=== PATIENT | female | born 1940 | race Hispanic/Latino ===

== ENCOUNTER 2017-01-09 07:32 | Inpatient (IN) | payer MEDICARE ==
[2016-12-14 09:55] VITALS: BMI 28.2
[2017-01-09 08:37] LABS: RBC URINE 1 /hpf (0-3); URINE BILIRUBIN NEGATIVE (NEGATIVE); URINE BLOOD NEGATIVE (NEGATIVE); URINE COLOR Straw (YELLOW); URINE GLUCOSE (UA) 2+ mg/dL (Normal); URINE KETONE NEGATIVE (NEGATIVE); URINE LEUKOCYTE ESTERASE TRACE Leu/uL (Negative); URINE PROTEIN 2+ mg/dL (NEGATIVE); URINE UROBILINOGEN NORMAL mg/dL (0.2-1.0); WBC URINE 7 /hpf (0-5)
[2017-01-09] MEDS ORDERED: cefTRIAXone IV 1 gm in Dextros 50 ML IVPB ONE (08:56)
[2017-01-09] MEDS ORDERED: ceFAZolin IV 2 gm in Dextrose 1 GM/50 ML BAG IVPB ONE (11:27)
[2017-01-09] MEDS ORDERED: Bupivacaine Liposomal Inj 20 ml INFIL ONE (11:33)
--- NOTE | 2017-01-09 11:37 | CP.PCM.HP ---
History of Present Illness - History of Present Illness History of Present Illness: 76F failed conservative mgmt and elected for THR. PMH: CAD, s/p stents, DM, HTN, hypothyroid, PVD s/p stent, LBP, dizziness All: lisinopril Present on Admission - Present on Admission Any Indicators Present on Admission: No Review of Systems - Review of Systems All systems: reviewed and no additional remarkable complaints except - Musculoskeletal Musculoskeletal: As Per HPI Past Patient History - Infectious Disease Hx of Infectious Diseases: None - Past Medical History & Family History Past Medical History?: Yes Past Family History: Reviewed and not pertinent - Past Social History Smoking Status: Former Smoker - CARDIAC Hx Cardiac Disorders: Yes (cad stents) Hx Angina: Yes (2 years ago not since stent placement) Hx Hypertension: Yes Hx Pacemaker: No Hx Peripheral Vascular Disease: Yes (pad left iliac stent) - PULMONARY Hx Respiratory Disorders: No - NEUROLOGICAL Hx Neurological Disorder: Yes (numbness bilat hands) Hx Dizziness: Yes Hx Paralysis: No - HEENT Hx HEENT Problems: Yes (macular degeneration) - RENAL Hx Chronic Kidney Disease: No - ENDOCRINE/METABOLIC Hx Endocrine Disorders: Yes Hx Diabetes Mellitus Type 2: Yes Hx Hypothyroidism: Yes - HEMATOLOGICAL/ONCOLOGICAL Hx Blood Disorders: Yes Hx Anemia: Yes Hx Blood Transfusions: No Hx Shingles: Yes - INTEGUMENTARY Hx Dermatological Problems: No - MUSCULOSKELETAL/RHEUMATOLOGICAL Hx Musculoskeletal Disorders: Yes (HIPS) Hx Arthritis: Yes Hx Back Pain: Yes Hx Falls: Yes Hx Herniated Disk: Yes (buldging lumbar discs) Hx Osteoarthritis: Yes - GASTROINTESTINAL Hx Gastrointestinal Disorders: Yes (occ diarrhea) - GENITOURINARY/GYNECOLOGICAL Hx Genitourinary Disorders: No - PSYCHIATRIC Hx Psychophysiologic Disorder: No Hx Substance Use: No - SURGICAL HISTORY Hx Surgeries: Yes Hx Angioplasty: Yes (2014 left iliac 2014) Hx Cardiac Catheterization: Yes (c/ stents) Hx Coronary Stent: Yes (2014) Other/Comment: heart stents - ANESTHESIA Hx Anesthesia: Yes Hx Anesthesia Reactions: No Hx Malignant Hyperthermia: No Has any member of the family had a problem w/ anesthesia?: No Meds Allergies/Adverse Reactions: Allergies Allergy/AdvReac Type Severity Reaction Status Date / Time lisinopril Allergy Severe ANAPHYLAXIS Verified 01/09/17 10:02 Physical Exam - Constitutional Appears: Well, No Acute Distress Additional comments: full medical H&P and clearance on chart, reviewed - Head Exam Head Exam: ATRAUMATIC, NORMAL INSPECTION - Respiratory Exam Respiratory Exam: NORMAL BREATHING PATTERN - Extremities Exam Additional comments: calves soft NT neg homans - Expanded Lower Extremities Exam Right Ankle exam: FULL ROM, NORMAL INSPECTION (limited R hip ROM, painful) Neuro vacular tendon exam: no vascular compromise - Neurological Exam Neurological exam: Alert, Oriented x3 - Psychiatric Exam Psychiatric exam: Normal Affect, Normal Mood - Skin Skin Exam: Dry, Intact, Normal Color, Warm Results - Vital Signs Recent Vital Signs: Last Vital Signs Temp 97.4 F L 01/09/17 09:05 Pulse 70 01/09/17 09:05 Resp 18 01/09/17 09:05 BP 161/69 H 01/09/17 09:05 Pulse Ox 98 01/09/17 09:05 - Labs Result Diagrams: 01/10/17 07:13 01/10/17 07:13 Labs: Laboratory Results - last 24 hr 01/09/17 01/09/17 01/09/17 08:02 09:32 09:52 POC Glucose (mg/dL) 252 H Urine Color Straw Urine Clarity Clear Urine pH 6.0 Ur Specific [place] 1.014 Urine Protein 2+ H Urine Glucose (UA) 2+ H Urine Ketones Negative Urine Blood Negative Urine Nitrate Negative Urine Bilirubin Negative Urine Urobilinogen Normal Ur Leukocyte Esterase Trace Urine WBC (Auto) 7 H Urine RBC (Auto) 1 Ur Squamous Epith Cells 2 Blood Type B POSITIVE Antibody Screen Negative Assessment & Plan (1) Degenerative joint disease of right hip Assessment and Plan: full medical h&P and clearance on chart, reviewed NPO for THR T&C Status: Acute (2) UTI (urinary tract infection) Assessment and Plan: UTI seen on pre admission labs, not treated prior to 01/08 +nitrites and 1+ leuk est on PATs, called into office 01/08 Bactrim DS ordered by Dr. Wolfe and urinalysis repeated on admit, shows tr leuk est, neg nitrites per Dr. Wolfe, rocephin was given, and will contine for 3 day course empirically due to total joint replacement Status: Acute (3) Iron deficiency anemia Status: Chronic (4) Diabetes mellitus Status: Chronic (5) Hypertension Status: Chronic (6) Coronary artery disease Status: Chronic (7) Hypothyroidism Status: Chronic
[2017-01-09] MEDS ORDERED: Lactated Ringer's 1,000 ML IV ONE ×3 (11:49→15:10)
[2017-01-09] MEDS ORDERED: Propofol 10 mg/ml Inj (20 ML) ONE (11:52)
[2017-01-09] MEDS ORDERED: Rocuronium 10 mg/ml (5 ml) ONE (11:53)
[2017-01-09] MEDS ORDERED: Succinylcholine Chloride 20 mg/ml Syr (5 ml) IV ONE (11:53)
[2017-01-09] MEDS ORDERED: ePHEDrine 50 mg/ml Inj ONE (12:10)
[2017-01-09] MEDS ORDERED: Sodium Chloride 0.9% 60 ML IV ONE (12:43)
[2017-01-09] MEDS: Bacitracin 150,000 UNIT in Sodium Chloride 0.9% Irrig 3,000 ML IR SCH ×2 (13:00→14:12)
[2017-01-09] MEDS ORDERED: Neostigmine Methylsulfate 3mg/3ml Syringe IV ONE ×2 (14:32)
[2017-01-09] MEDS ORDERED: Bisacodyl 5mg EC Tab PO PRN (15:17)
[2017-01-09] MEDS ORDERED: HYDROmorphone 1 mg/ml ISec IVP PRN (15:17)
[2017-01-09] MEDS ORDERED: Oxycodone/Acetaminophen 5/325 mg Tab PO PRN (15:17)
[2017-01-09] MEDS ORDERED: Morphine Monoject Barrel PCA 1mg/ml IV PRN (15:23)
[2017-01-09] MEDS ORDERED: DiphenhydrAMINE 50 mg/ml Inj IVP PRN (15:23)
--- NOTE | 2017-01-09 15:47 | RAD ---
PROCEDURE: Right Hip with pelvis Radiographs. HISTORY: s/p TKR, pt in PACU COMPARISON: None. FINDINGS: BONES: No suspicious lytic or blastic change seen throughout the pelvic ring or pelvic bone fracture. Pubic symphysis appears intact. JOINTS: The patient is seen to be status post right shoulder replacement with orthopedic hardware in good apparent position of the right acetabulum and proximal right femur. SOFT TISSUES: Postoperative changes seen at the right thigh soft tissues lateral as well as of the lateral right hip including lateral skin karla. Gross vascular calcification identified at the iliofemoral distribution as captured bilaterally. OTHER FINDINGS: None. IMPRESSION: Status post right shoulder replacement with hardware in adequate position. No fracture dislocation or suspicious lytic or blastic change. Postoperative changes are noted at the right hip and thigh as discussed above.
[2017-01-09] MEDS: (Novolin R) Insulin Human Regular 100 units/ml vial SC SCH ×2 (16:39→22:29)
[2017-01-09] MEDS ORDERED: HYDROmorphone 0.5 mg/0.5 ml ISec IVP PRN (17:01)
[2017-01-09] MEDS: Sodium Chloride 0.9% 1,000 ML IV SCH (18:00)
--- NOTE | 2017-01-09 18:23 | OP ---
PROCEDURE DATE: 01/09/2017 PREOPERATIVE DIAGNOSIS: Right hip osteoarthritis. POSTOPERATIVE DIAGNOSIS: Right hip osteoarthritis. PROCEDURE: Right total hip arthroplasty. SURGEON: Maximino Wolfe MD CONTROL SUPERVISOR: Treva Goins, physician insurance legal assistant, Ms. Briseida was scrubbed and present throughout the case and helped in the patient's positioning, retraction, hip reduction as well as wound closure. ANESTHESIA: General. COMPLICATIONS: None. ESTIMATED BLOOD LOSS: 350 mL IMPLANT: Biomet dual mobility total hip. INDICATIONS FOR PROCEDURE: This is a 76-year-old female who presented with longstanding right hip pain. Clinical examination reveals pain with passive range of motion at the left hip, loss of internal and external rotation and pain with axial load. Radiographic examination was consistent with advanced degenerative joint disease of the right hip. After a period of failed nonsurgical management, recommendations were for right total hip arthroplasty. The risks, benefits and alternatives of the procedure were discussed with the patient and informed consent was obtained. OPERATIVE PROCEDURE: After the surgical site was finally verified in the preoperative holding area, the patient was taken to the operating room and placed supine on the operating table. After administration of general anesthesia, the patient received 2 g of Ancef IV. The patient also received 1 g of Rocephin earlier today and Oliva catheter was inserted. VA9 boot was placed on the nonoperative extremity and the patient was positioned in lateral decubitus position with the right hip up towards the ceiling. Care was taken to make sure all bony prominences and nerves were well padded and protected and the right lower extremity was prepped and draped in the usual sterile fashion. Bony landmarks were identified about the proximal femur and approximately 10 cm curvilinear incision was made. Soft tissues were dissected sharply down to the fascia. The fascia was incised and Charnley retractor was placed. Short external rotators were identified, tacked and resected off the proximal femur. T-type capsulotomy was performed and the hip was dislocated. Based on the preoperative template, a femoral neck dissection was then performed. The femoral head was removed and passed off the field as a specimen. An anterior capsulotomy was performed and the acetabulum was exposed. The acetabulum was then reamed sequentially to allow for a 54 mm Pressfit cup. Care was taken to maintain proper acetabular height and version. At this point, a trial component was placed and satisfied. The trial was removed and the hip joint was pulse lavaged. The bony surfaces were dried and the actual cup was impacted into place. The cup was further fixed by inserting 2 screws in the posterior-superior quadrant. At this point, a trial band was inserted and attention was directed to the femur. Medial condyle of the proximal femur was reamed sequentially to allow for a 11 mm Pressfit stem. Again, care was taken to maintain proper version. The trial stem was then placed and the trial neck and head were placed and the hip was reduced. The hip was taken through range motion, it was noted to be stable to approximately equal limb lengths. At this point, the hip was dislocated and all the trial components were removed. The hip joint was once again pulse lavaged. The bony surfaces were dried and the actual stem was then impacted into place. The actual bearing was then impacted in place. The head was placed over the stem and the hip was reduced. The hip was again noted to be stable at approximately equal limb lengths. At this point, the capsule was closed using #1 Vicryl suture to the bone. Soft tissues were also repaired using #1 Vicryl suture. The deep fascia was closed using # Vicryl suture. The subcutaneous tissue was closed 0 Vicryl and 2-0 Vicryl sutures and the skin was closed using karla. Sterile dressing was applied and an abduction pillow was placed. The patient was transferred to supine and sent to recovery room in stable condition. Maximino Wolfe MD
[2017-01-09 18:32] LABS: HEMATOCRIT 23.6 % (34.0-47.0)
[2017-01-09] MEDS: Metoprolol Succinate 50 mg XL Tab PO SCH (19:15)
[2017-01-09] MEDS: GlipiZIDE 2.5 mg Tab PO SCH (19:15)
[2017-01-09] MEDS: ceFAZolin IV 2 gm in Dextrose 2 GM/100 ML BAG IVPB SCH (19:30)
[2017-01-09] MEDS: HYDROmorphone 0.5 mg/0.5 ml ISec IVP PRN (23:59)
[2017-01-10] MEDS: Sodium Chloride 0.9% 1,000 ML IV SCH ×2 (04:00→11:29)
[2017-01-10] MEDS: ceFAZolin IV 2 gm in Dextrose 2 GM/100 ML BAG IVPB SCH (05:13)
[2017-01-10] MEDS: HYDROmorphone 0.5 mg/0.5 ml ISec IVP PRN ×2 (05:17→11:05)
[2017-01-10] MEDS: Levothyroxine 125 MCG TAB PO SCH (06:54)
[2017-01-10 07:19] LABS: HEMATOCRIT 26.5 % (34.0-47.0); MEAN CELL VOLUME 83.8 fL (81.0-99.0); MEAN CORPUSCULAR HEMOGLOBIN 27.7 pg (27.0-31.0); MEAN PLATELET VOLUME 8.7 fL (7.2-11.7); RED CELL DISTRIBUTION WIDTH 15.4 % (11.5-14.5); WHITE BLOOD COUNT 6.7 K/uL (4.8-10.8)
[2017-01-10] MEDS: (Novolin R) Insulin Human Regular 100 units/ml vial SC SCH ×4 (08:30→21:39)
[2017-01-10 08:34] LABS: CALCIUM 8.5 mg/dl (8.6-10.4); POTASSIUM 4.7 mmol/L (3.6-5.2)
[2017-01-10] MEDS: Metoprolol Succinate 50 mg XL Tab PO SCH ×2 (10:00→17:39)
--- NOTE | 2017-01-10 10:59 | CP.PCM.PN ---
Subjective - Date & Time of Evaluation Date of Evaluation: 01/10/17 Time of Evaluation: 10:57 - Subjective Subjective: Pt awake, alert. Afebrile RLE: NVI distally dressing intact Hg 8.7 POD#1 Pt received 2 units of blood. Check Hg tomorrow DVT prophylaxis D/c planning Objective - Vital Signs/Intake and Output Vital Signs (last 24 hours): Temp Pulse Resp BP Pulse Ox 98 F 84 20 152/75 H 97 01/10/17 07:10 01/10/17 07:10 01/10/17 07:10 01/10/17 07:10 01/10/17 07:10 Intake and Output: 01/10/17 01/10/17 06:59 18:59 Intake Total 645 Output Total 1350 Balance -705 - Medications Medications: Current Medications Acetaminophen (Tylenol 325mg Tab) 650 mg PO Q4 PRN PRN Reason: Fever 101 degrees fahrenheit Amlodipine Besylate (Norvasc) 5 mg PO DAILY [facility] Last Admin: 01/10/17 09:59 Dose: 5 mg Bisacodyl (Dulcolax) 10 mg PO HS PRN PRN Reason: Constipation Docusate Sodium (Colace) 100 mg PO BID [facility] Last Admin: 01/10/17 10:00 Dose: 100 mg Enoxaparin Sodium (Lovenox) 40 mg SC Q24H [facility] Gabapentin (Neurontin) 300 mg PO BID [facility] Last Admin: 01/09/17 19:15 Dose: 300 mg Glipizide (Glucotrol) 5 mg PO BID [facility] Last Admin: 01/09/17 19:15 Dose: 5 mg Hydrochlorothiazide (Hydrodiuril) 25 mg PO DAILY [facility] Last Admin: 01/10/17 10:00 Dose: 25 mg Hydromorphone HCl (Dilaudid) 0.5 mg IVP Q15MIN PRN PRN Reason: for pain Last Admin: 01/09/17 17:45 Dose: 0.5 mg Hydromorphone HCl (Dilaudid) 0.5 mg IVP Q4H PRN PRN Reason: Pain, severe (8-10) Last Admin: 01/10/17 05:17 Dose: 0.5 mg Sodium Chloride (Sodium Chloride 0.9%) 1,000 mls @ 80 mls/hr IV .[id number] [facility] Last Admin: 01/10/17 04:00 Dose: Not Given Ceftriaxone Sodium 1 gm/ (Sodium Chloride) 100 mls @ 100 mls/hr IVPB DAILY [facility] Stop: 01/11/17 10:59 Insulin Detemir (Levemir) 40 unit SC HS [facility] Insulin Human Regular (Novolin R) 0 unit SC ACHS [facility] PRN Reason: Protocol Last Admin: 01/09/17 22:29 Dose: 2 unit Isosorbide Mononitrate (Imdur) 60 mg PO QAM [facility] Last Admin: 01/10/17 10:00 Dose: 60 mg Levothyroxine Sodium (Synthroid) 125 mcg PO DAILY@0630 [facility] Last Admin: 01/10/17 06:54 Dose: 125 mcg Metformin HCl (Glucophage) 500 mg PO BID [facility] Metoprolol Succinate (Toprol Xl) 50 mg PO BID [facility] Last Admin: 01/10/17 10:00 Dose: 50 mg Ondansetron HCl (Zofran Inj) 4 mg IVP Q8H PRN PRN Reason: Nausea/Vomiting Oxycodone/Acetaminophen (Percocet 5/325 Mg Tab) 1 tab PO Q4 PRN PRN Reason: Pain, Mild (1-3) Stop: 01/12/17 15:18 - Labs Labs: 01/10/17 07:13 01/10/17 07:13
--- NOTE | 2017-01-10 14:45 | CP.PCM.PN ---
Subjective - Date & Time of Evaluation Date of Evaluation: 01/10/17 Time of Evaluation: 14:43 - Subjective Subjective: Patient states pain is well controlled. Denies CP/SOB/dizziness. Receiving second unit PRBC now. Denies nv/numbness/tingling. Objective - Vital Signs/Intake and Output Vital Signs (last 24 hours): Temp Pulse Resp BP Pulse Ox 98.9 F 82 20 136/62 98 01/10/17 14:15 01/10/17 14:15 01/10/17 14:15 01/10/17 14:15 01/10/17 13:13 Intake and Output: 01/10/17 01/10/17 06:59 18:59 Intake Total 645 0 Output Total 1350 Balance -705 0 - Medications Medications: Current Medications Acetaminophen (Tylenol 325mg Tab) 650 mg PO Q4 PRN PRN Reason: Fever 101 degrees fahrenheit Last Admin: 01/10/17 14:09 Dose: 650 mg Amlodipine Besylate (Norvasc) 5 mg PO DAILY [facility] Last Admin: 01/10/17 09:59 Dose: 5 mg Bisacodyl (Dulcolax) 10 mg PO HS PRN PRN Reason: Constipation Docusate Sodium (Colace) 100 mg PO BID [facility] Last Admin: 01/10/17 10:00 Dose: 100 mg Enoxaparin Sodium (Lovenox) 40 mg SC Q24H [facility] Gabapentin (Neurontin) 300 mg PO BID [facility] Last Admin: 01/10/17 10:59 Dose: 300 mg Glipizide (Glucotrol) 5 mg PO BID [facility] Last Admin: 01/09/17 19:15 Dose: 5 mg Hydrochlorothiazide (Hydrodiuril) 25 mg PO DAILY [facility] Last Admin: 01/10/17 10:00 Dose: 25 mg Ceftriaxone Sodium 1 gm/ (Sodium Chloride) 100 mls @ 100 mls/hr IVPB DAILY [facility] Stop: 01/11/17 10:59 Last Admin: 01/10/17 11:24 Dose: 100 mls/hr Insulin Detemir (Levemir) 40 unit SC HS [facility] Insulin Human Regular (Novolin R) 0 unit SC ACHS [facility] PRN Reason: Protocol Last Admin: 01/10/17 11:51 Dose: 6 unit Isosorbide Mononitrate (Imdur) 60 mg PO QAM [facility] Last Admin: 01/10/17 10:00 Dose: 60 mg Levothyroxine Sodium (Synthroid) 125 mcg PO DAILY@0630 [facility] Last Admin: 01/10/17 06:54 Dose: 125 mcg Metformin HCl (Glucophage) 500 mg PO BID [facility] Metoprolol Succinate (Toprol Xl) 50 mg PO BID [facility] Last Admin: 01/10/17 10:00 Dose: 50 mg Morphine Sulfate (Morphine) 2 mg IVP Q4 PRN PRN Reason: Pain, severe (8-10) Ondansetron HCl (Zofran Inj) 4 mg IVP Q8H PRN PRN Reason: Nausea/Vomiting Oxycodone/Acetaminophen (Percocet 5/325 Mg Tab) 1 tab PO Q4 PRN PRN Reason: Pain, Mild (1-3) Stop: 01/12/17 15:18 - Labs Labs: 01/10/17 07:13 01/10/17 07:13 - Extremities Exam Additional comments: calves soft NT neg homans sensation intact +DP/PT pulses +enodynes +abd pillow - Neurological Exam Neurological Exam: Awake, Oriented x3 Neuro motor strength exam: Right Lower Extremity: 5 Additional comments: patient drowsy, answers questions and easily awakened, received dilaudid 1 hour prior - Psychiatric Exam Psychiatric exam: Normal Affect, Normal Mood - Skin Skin Exam: Dry, Intact, Normal Color, Warm Assessment and Plan (1) Degenerative joint disease of right hip Assessment & Plan: POD#1 s/p right THR f/u am labs PT/OT d/c planning will change dilaudid to lower dose morphine and hold for sedation VTE proph on lovenox d/w Dr. Wolfe, agrees with above Status: Acute (2) Acute blood loss anemia Assessment & Plan: transfuse 2uPRBC post op labs in am hemodynamically stable Status: Acute (3) UTI (urinary tract infection) Status: Acute (4) Iron deficiency anemia Status: Chronic (5) Diabetes mellitus Status: Chronic (6) Hypertension Status: Chronic (7) Coronary artery disease Status: Chronic (8) Hypothyroidism Status: Chronic
[2017-01-10] MEDS: Enoxaparin 40 mg Syringe SC SCH (17:39)
[2017-01-10] MEDS: GlipiZIDE 2.5 mg Tab PO SCH (18:21)
[2017-01-10] MEDS: Insulin Detemir 100 units/ml Vial (Levemir) SC SCH (21:56)
[2017-01-11] MEDS: Levothyroxine 125 MCG TAB PO SCH (05:59)
[2017-01-11 06:28] LABS: HEMATOCRIT 27.6 % (34.0-47.0); MEAN CELL VOLUME 82.9 fL (81.0-99.0); MEAN CORPUSCULAR HEMOGLOBIN 27.9 pg (27.0-31.0); MEAN CORPUSCULAR HGB CONC 33.6 g/dL (33.0-37.0); MEAN PLATELET VOLUME 8.8 fL (7.2-11.7); RED CELL DISTRIBUTION WIDTH 15.1 % (11.5-14.5); WHITE BLOOD COUNT 7.6 K/uL (4.8-10.8)
[2017-01-11] MEDS: (Novolin R) Insulin Human Regular 100 units/ml vial SC SCH ×3 (07:00→17:54)
[2017-01-11 07:46] LABS: POTASSIUM 3.7 mmol/L (3.6-5.2)
[2017-01-11 07:50] LABS: CALCIUM 8.1 mg/dl (8.6-10.4)
--- NOTE | 2017-01-11 07:55 | CP.PCM.PN ---
Subjective - Date & Time of Evaluation Date of Evaluation: 01/11/17 Time of Evaluation: 07:54 - Subjective Subjective: Pt awake, alert. Denies significant pain. Afebrile R hip with clean dressing. NVI distally abduction pillow in place Hg 9.3 POD#2 cont PT, DVT prophylaxis stable for d/c Objective - Vital Signs/Intake and Output Vital Signs (last 24 hours): Temp Pulse Resp BP Pulse Ox 98.3 F 84 20 158/71 H 96 01/11/17 06:38 01/10/17 23:05 01/10/17 23:05 01/10/17 23:05 01/10/17 23:05 Intake and Output: 01/11/17 01/11/17 06:59 18:59 Intake Total 118 Balance 118 - Medications Medications: Current Medications Acetaminophen (Tylenol 325mg Tab) 650 mg PO Q4 PRN PRN Reason: Fever 101 degrees fahrenheit Last Admin: 01/11/17 01:14 Dose: 650 mg Amlodipine Besylate (Norvasc) 5 mg PO DAILY [facility] Last Admin: 01/10/17 09:59 Dose: 5 mg Bisacodyl (Dulcolax) 10 mg PO HS PRN PRN Reason: Constipation Docusate Sodium (Colace) 100 mg PO BID [facility] Last Admin: 01/10/17 17:39 Dose: 100 mg Enoxaparin Sodium (Lovenox) 40 mg SC Q24H [facility] 234 [facility]S [facility] Last Admin: 01/10/17 17:39 Dose: 40 mg Gabapentin (Neurontin) 300 mg PO BID [facility] 234 [facility]S [facility] Last Admin: 01/10/17 17:41 Dose: 300 mg Glipizide (Glucotrol) 5 mg PO BID [facility] 234 [facility]S [facility] Last Admin: 01/10/17 18:21 Dose: 5 mg Hydrochlorothiazide (Hydrodiuril) 25 mg PO DAILY [facility] 234 [facility]S [facility] Last Admin: 01/10/17 10:00 Dose: 25 mg Ceftriaxone Sodium 1 gm/ (Sodium Chloride) 100 mls @ 100 mls/hr IVPB DAILY [facility] 234 [facility]S [facility] Stop: 01/11/17 10:59 Last Admin: 01/10/17 11:24 Dose: 100 mls/hr Insulin Detemir (Levemir) 40 unit SC HS [facility] 234 [facility]S [facility] Last Admin: 01/10/17 21:56 Dose: 40 unit Insulin Human Regular (Novolin R) 0 unit SC ACHS [facility] 234 [facility]S [facility] PRN Reason: Protocol Last Admin: 01/10/17 21:39 Dose: Not Given Isosorbide Mononitrate (Imdur) 60 mg PO QAM [facility] Last Admin: 01/10/17 10:00 Dose: 60 mg Levothyroxine Sodium (Synthroid) 125 mcg PO DAILY@0630 [facility] 234 [facility]S [facility] Last Admin: 01/11/17 05:59 Dose: 125 mcg [facility] Metoprolol Succinate (Toprol Xl) 50 mg PO BID [facility] Last Admin: 01/10/17 17:39 Dose: 50 mg Morphine Sulfate (Morphine) 2 mg IVP Q4 PRN PRN Reason: Pain, severe (8-10) Ondansetron HCl (Zofran Inj) 4 mg IVP Q8H PRN PRN Reason: Nausea/Vomiting Oxycodone/Acetaminophen (Percocet 5/325 Mg Tab) 1 tab PO Q4 PRN PRN Reason: Pain, Mild (1-3) Stop: 01/12/17 15:18 - Labs Labs: 01/11/17 06:20 01/11/17 06:20
[2017-01-11] MEDS: Metoprolol Succinate 50 mg XL Tab PO SCH ×2 (09:30→17:53)
[2017-01-11] MEDS: GlipiZIDE 2.5 mg Tab PO SCH ×2 (09:31→17:54)
--- NOTE | 2017-01-11 10:04 | CON ---
DATE: HISTORY OF PRESENT ILLNESS: The patient is a 76-year-old female with history of multiple medical problems, was seen for medical management and medical followup postoperative. The patient underwent right total hip replacement. The patient did not have any shortness of breath or chest pain. REVIEW OF SYSTEMS: Other review of systems is negative. ALLERGIES: THE PATIENT HAS ALLERGY TO LISINOPRIL. HOME MEDICATIONS: Levemir 40 units at bedtime, glipizide 5 mg twice a day, levothyroxine 125 mcg daily, metformin 1000 mg twice a day, Imdur 60 mg daily, Neurontin 300 mg twice a day, enalapril and hydrochlorothiazide 1 tablet daily, amlodipine 5 mg daily, Nitrostat 0.4 mg sublingual, metoprolol 50 mg twice a day. PAST MEDICAL HISTORY: Hypertension, osteoarthritis, type 2 diabetes mellitus. SOCIAL HISTORY: No history of smoking, EtOH, or substance abuse. FAMILY HISTORY: Noncontributory. PHYSICAL EXAMINATION GENERAL: The patient is in bed, comfortable, not in any cardiopulmonary distress. VITAL SIGNS: Blood pressure 140/81, temperature 99.2, respiratory rate 20, and pulse 86. HEENT: Pupils equal and reactive to light. Normal-appearing mucosa of the conjunctivae, oropharynx, and nasal membrane mucosa. NECK: Supple. No JVD. No carotid bruits. No lymph node. No thyromegaly. CHEST AND LUNGS: Bilateral symmetrical expansion. Good air exchange. No rales. No rhonchi. CARDIOVASCULAR SYSTEM: PMI not localized. S1 and S2. No additional sounds. ABDOMEN: Normoactive bowel sounds. No tenderness. No organomegaly. No masses. EXTREMITIES: No cyanosis. No clubbing. No edema. CENTRAL NERVOUS SYSTEM: Alert, awake, and oriented x3. No neurological deficit could be appreciated. ASSESSMENT: Postoperative day #1 status post right total hip replacement, hypertension, osteoarthritis, type 2 diabetes mellitus. PLAN: We will do Accu-Chek with insulin coverage as needed. Resume patient's home medications. Monitor electrolytes and hemoglobin and hematocrit. Physical therapy. Plan to discharge to subacute rehabilitation. Prem Napier MD
[2017-01-11] MEDS: Enoxaparin 40 mg Syringe SC SCH (13:35)
[2017-01-11 16:06] VITALS: PULSE 89; RESP 20; TEMP 98; O2SAT 97
--- NOTE | 2017-01-11 16:08 | CP.PCM.DIS ---
Provider - Provider Date of Admission: 01/09/17 12:02 Attending physician: Maximino Wolfe MD Time Spent in preparation of Discharge (in minutes): 5 Diagnosis - Discharge Diagnosis (1) Degenerative joint disease of right hip Status: Acute (2) Acute blood loss anemia Status: Acute (3) UTI (urinary tract infection) Status: Acute (4) Iron deficiency anemia Status: Chronic (5) Diabetes mellitus Status: Chronic (6) Hypertension Status: Chronic (7) Coronary artery disease Status: Chronic (8) Hypothyroidism Status: Chronic Hospital Course - Lab Results Lab Results: Most Recent Lab Values WBC 7.6 K/uL (4.8-10.8) 01/11/17 06:20 RBC 3.33 Mil/uL (3.80-5.20) L 01/11/17 06:20 Hgb 9.3 g/dL (11.0-16.0) L 01/11/17 06:20 Hct 27.6 % (34.0-47.0) L 01/11/17 06:20 MCV 82.9 fL (81.0-99.0) 01/11/17 06:20 MCH 27.9 pg (27.0-31.0) 01/11/17 06:20 MCHC 33.6 g/dL (33.0-37.0) 01/11/17 06:20 RDW 15.1 % (11.5-14.5) H 01/11/17 06:20 Plt Count 230 K/uL (130-400) 01/11/17 06:20 MPV 8.8 fL (7.2-11.7) 01/11/17 06:20 Sodium 128 mmol/L (132-148) L 01/11/17 06:20 Potassium 3.7 mmol/L (3.6-5.2) 01/11/17 06:20 Chloride 99 mmol/L (98-107) 01/11/17 06:20 Carbon Dioxide 22 mmol/L (22-30) 01/11/17 06:20 Anion Gap 10 (10-20) 01/11/17 06:20 BUN 25 mg/dL (7-17) H 01/11/17 06:20 Creatinine 1.3 mg/dL (0.7-1.2) H 01/11/17 06:20 Est GFR ( Amer) 48 01/11/17 06:20 Est GFR (Non-Af Amer) 40 01/11/17 06:20 POC Glucose (mg/dL) 174 mg/dL (65-110) H 01/11/17 12:16 Random Glucose 145 mg/dL (65-105) H 01/11/17 06:20 Calcium 8.1 mg/dl (8.6-10.4) L 01/11/17 06:20 Urine Color Straw (YELLOW) 01/09/17 08:02 Urine Clarity Clear (Clear) 01/09/17 08:02 Urine pH 6.0 (5.0-8.0) 01/09/17 08:02 Ur Specific Friant 1.014 (1.003-1.030) 01/09/17 08:02 Urine Protein 2+ mg/dL (NEGATIVE) H 01/09/17 08:02 Urine Glucose (UA) 2+ mg/dL (Normal) H 01/09/17 08:02 Urine Ketones Negative mg/dL (NEGATIVE) 01/09/17 08:02 Urine Blood Negative (NEGATIVE) 01/09/17 08:02 Urine Nitrate Negative (NEGATIVE) 01/09/17 08:02 Urine Bilirubin Negative (NEGATIVE) 01/09/17 08:02 Urine Urobilinogen Normal mg/dL (0.2-1.0) 01/09/17 08:02 Ur Leukocyte Esterase Trace Lianna/uL (Negative) 01/09/17 08:02 Urine WBC (Auto) 7 /hpf (0-5) H 01/09/17 08:02 Urine RBC (Auto) 1 /hpf (0-3) 01/09/17 08:02 Ur Squamous Epith Cells 2 /hpf (0-5) 01/09/17 08:02 Blood Type B POSITIVE 01/09/17 09:52 Antibody Screen Negative 01/09/17 09:52 - Hospital Course Hospital Course: 76f with PMH: HTN, DM, hypercholesterolemia with right hip osteoarthritis failed conservative management and elected for THR. Postoperative imaging demonstrated acceptable position of prosthesis. Medical consultation was requested for post operative medical management. HTN and DM were controlled throughout admission. Patients post operative course was complicated by acute blood loss anemia, in addition to patients chronic anemia, for which patient received PRBC transfusion of 2 units. Patient tolerated PT/OT well. Patient received VTE prophylaxis in the form of lovenox 40mg SQ q24h and venodynes. Patient also instructed to continue with hip abduction pillow and posterior hip precautions. PT was discharged to [facility], and continued on home medications as well as the lovenox. Patient was WBAT LLE, ambulating with walker, and given instructions for daily dressing changes and to f/u Dr. Wolfe within 2 weeks. Discharge Exam - Head Exam Head Exam: ATRAUMATIC, NORMAL INSPECTION Discharge Plan - Follow Up Plan Condition: GOOD Disposition: REHAB FACILITY/REHAB UNIT Instructions: Pain Management After Surgery (DC), Precautions after Total Joint Replacement Surgery (DC), Total Hip Replacement (DC), Hip Abduction Pillow (DC) Referrals: Maximino Wolfe MD [Staff Provider] - 01/22/17 (Dressing change right hip daily posterior hip precautions WBAT RLE maintain hip abduction pillow in bed f/u 10-14 days call for appointment)
--- NOTE | 2017-01-11 18:01 | CP.PCM.PN ---
Subjective - Date & Time of Evaluation Date of Evaluation: 01/11/17 Time of Evaluation: 18:00 - Subjective Subjective: stable vitals, no recall, no nausea uneventful anesthesia pain management by ortho Objective - Vital Signs/Intake and Output Vital Signs (last 24 hours): Temp Pulse Resp BP Pulse Ox 98 F 89 20 168/65 H 97 01/11/17 15:00 01/11/17 15:00 01/11/17 15:00 01/11/17 15:00 01/11/17 15:00 Intake and Output: 01/11/17 01/11/17 06:59 18:59 Intake Total 118 Balance 118 - Medications Medications: Current Medications Acetaminophen (Tylenol 325mg Tab) 650 mg PO Q4 PRN PRN Reason: Fever 101 degrees fahrenheit Last Admin: 01/11/17 01:14 Dose: 650 mg Amlodipine Besylate (Norvasc) 5 mg PO DAILY ON LICENSE OF [facility] Last Admin: 01/11/17 09:30 Dose: 5 mg Bisacodyl (Dulcolax) 10 mg PO HS PRN PRN Reason: Constipation Docusate Sodium (Colace) 100 mg PO BID ON LICENSE OF [facility] Last Admin: 01/11/17 09:30 Dose: Not Given Enoxaparin Sodium (Lovenox) 40 mg SC Q24H ON LICENSE OF [facility] Last Admin: 01/11/17 13:35 Dose: 40 mg Gabapentin (Neurontin) 300 mg PO BID ON LICENSE OF [facility] Last Admin: 01/11/17 17:55 Dose: 300 mg Glipizide (Glucotrol) 5 mg PO BID ON LICENSE OF [facility] Last Admin: 01/11/17 17:54 Dose: 5 mg Hydrochlorothiazide (Hydrodiuril) 25 mg PO DAILY ON LICENSE OF [facility] Last Admin: 01/11/17 09:30 Dose: 25 mg Insulin Detemir (Levemir) 40 unit SC HS ON LICENSE OF [facility] Last Admin: 01/10/17 21:56 Dose: 40 unit Insulin Human Regular (Novolin R) 0 unit SC ACHS ON LICENSE OF [facility] PRN Reason: Protocol Last Admin: 01/11/17 17:54 Dose: 3 unit Isosorbide Mononitrate (Imdur) 60 mg PO QAM ON LICENSE OF [facility] Last Admin: 01/11/17 09:30 Dose: 60 mg Levothyroxine Sodium (Synthroid) 125 mcg PO DAILY@0630 ON LICENSE OF [facility] Last Admin: 01/11/17 05:59 Dose: 125 mcg [facility] Last Admin: 01/11/17 17:54 Dose: 500 mg Metoprolol Succinate (Toprol Xl) 50 mg PO BID ON LICENSE OF [facility] Last Admin: 01/11/17 17:53 Dose: 50 mg Morphine Sulfate (Morphine) 2 mg IVP Q4 PRN PRN Reason: Pain, severe (8-10) Last Admin: 01/11/17 13:35 Dose: 2 mg Ondansetron HCl (Zofran Inj) 4 mg IVP Q8H PRN PRN Reason: Nausea/Vomiting Oxycodone/Acetaminophen (Percocet 5/325 Mg Tab) 1 tab PO Q4 PRN PRN Reason: Pain, Mild (1-3) Stop: 01/12/17 15:18 - Labs Labs: 01/11/17 06:20 01/11/17 06:20
[2017-01-11] MEDS: Insulin Detemir 100 units/ml Vial (Levemir) SC SCH (21:14)
[2017-01-11 21:20] VITALS: BP 139/68
--- NOTE | 2017-01-11 23:35 | PN ---
DATE: 01/11/2017 DAILY PROGRESS NOTE SUBJECTIVE: The patient is seen today 01/11/2017. PHYSICAL EXAMINATION GENERAL: She is not in any cardiopulmonary distress. VITAL SIGNS: Blood pressure 135/69, temperature 98.3, respiratory rate 18, pulse 78. HEENT: Pupils equal and reactive to light. Normal-appearing mucosa of the conjunctivae, oropharynx, and nasal membrane mucosa. NECK: Supple. No JVD. No carotid bruits. No lymph node. No thyromegaly. CHEST AND LUNGS: Bilateral symmetrical expansion. Good air exchange. No rales. No rhonchi. CARDIOVASCULAR SYSTEM: PMI not localized. S1 and S2. No additional sounds. ABDOMEN: Normoactive bowel sounds. No tenderness. No organomegaly. No masses. EXTREMITIES: No cyanosis. No clubbing. No edema. CENTRAL NERVOUS SYSTEM: Alert, awake, and oriented x2. No neurological deficit could be appreciated. ASSESSMENT: Status post right total knee replacement postoperative day #2, hypertension, osteoarthritis. PLAN: Continue current medication and management and patient is for subacute rehabilitation. Prem Napier MD
== END 2017-01-11 22:00 | DRG 470 ==
LOC: C.SDS 07:32 → C.9E 12:02 → C.9S 13:20 → C.6T 19:47
PROVIDERS: ADMIT Orthopaedic Surgery; ATTEND Orthopaedic Surgery
PROC: 0SR90JA Replacement of Right Hip Joint with Synthetic Substitute, Uncemented, Open Approach (ICD-10-PCS; principal; 2017-01-09 11:45)
DX: M16.11 Unilateral primary osteoarthritis, right hip (principal); E11.9 Type 2 diabetes mellitus without complications; N39.0 Urinary tract infection, site not specified; D62 Acute posthemorrhagic anemia; D50.9 Iron deficiency anemia, unspecified; I10 Essential (primary) hypertension; E03.9 Hypothyroidism, unspecified; E78.00 Pure hypercholesterolemia, unspecified; I25.10 Atherosclerotic heart disease of native coronary artery without angina pectoris; I73.9 Peripheral vascular disease, unspecified; Z79.4 Long term (current) use of insulin; Z79.899 Other long term (current) drug therapy; Z87.891 Personal history of nicotine dependence; Z95.5 Presence of coronary angioplasty implant and graft; Z95.820 Peripheral vascular angioplasty status with implants and grafts